=== PATIENT | female | born 2000 | race Caucasian/White ===

== ENCOUNTER 2021-07-14 11:53 | Emergency (ER) | payer BC, SELFPAY ==
[2021-07-14 12:03] VITALS: BP 121/78; PULSE 89; RESP 20; TEMP 36.3; O2SAT 100
--- NOTE | 2021-07-14 12:07 | ED.NAVMDI ---
HPI - Nausea/Vomiting/Diarrhea General Chief complaint: Nausea/Vomiting/Diarrhea Stated complaint: SEEING BLACK SPOTS/HEADACHE/NAUSEA Time Seen by Provider: 07/14/21 12:07 Source: patient and RN notes reviewed Mode of arrival: ambulatory Limitations: no limitations History of Present Illness HPI Narrative: 21-year-old female presents to the [facility] with headache, nausea and vomiting along with seeing black spots. Patient states that she woke up this morning and went and took a test at school. When she walked out started getting a headache and seeing black spots. Tried eating something because she felt faint. Started vomiting. States she has a history of migraines but this is worse than her normal migraine Last menstrual period 10 to 14 days ago Related Data Home Medications Medication Instructions Recorded Confirmed escitalopram oxalate mg 07/14/21 Allergies Allergy/AdvReac Type Severity Reaction Status Date / Time amoxicillin Allergy Unknown Verified 07/14/21 12:06 Review of Systems Review of Systems: All systems reviewed & are unremarkable except as noted in HPI and below Constitutional: Constitutional: Reports no additional constitutional complaints, Denies chills and Denies fever(s) Eyes: Eyes: Reports no additional eye complaints ENT: Reports system reviewed and no additional complaints, except as documented Cardiovascular: Cardiovascular: Reports no additional cardiovascular complaints and Denies chest pain Respiratory: Respiratory: Reports no additional respiratory complaints, Denies cough and Denies dyspnea Gastrointestinal: Gastrointestinal: Reports as per HPI, Reports abdominal pain, Reports nausea and Reports vomiting Genitourinary: Genitourinary: Reports no additional female genitourinary complaints Musculoskeletal: Musculoskeletal: Reports no additional musculoskeletal complaints, Denies back pain, Denies myalgias and Denies muscle cramps Integumentary/Breasts: Skin/Breast: Reports system reviewed and no additional complaints, except as docu, Denies erythema and Denies rash Neurologic: Reports as per HPI, Denies Abnormal speech present, Denies abnormal gait, Denies syncope, Reports headache(s), Denies focal weakness, Denies numbness, Reports Other visual disturbances (black spots) and Denies paresthesias Psychiatric: Psychiatric: Reports no additional psychiatric complaints Allergic/Immunologic: Allergic/Immunologic: Reports no additional allergic/immunologic complaints PMFSH Past Medical History Medical History (Updated 07/14/21 @ 13:06 by Sun Sands) Migraine Surgical History Surgical History (Updated 07/14/21 @ 13:06 by Sun Sands) No significant past surgical history Social History Social History (Updated 07/14/21 @ 13:07 by Sun Sands) Living arrangements: with roommate(s) Occupation/Education: student Gender identity (if verbalized by the patient): Female Comments At the time of my signature, I reviewed and agree with the nursing past medical, surgical, social, and family history. There is no relevant family history pertinent to the patient complaint. Exam Const: General: healthy appearing, no acute distress and alert Nutritional Appearance: well nourished Orientation/consciousness: patient oriented x3 Limitations: no limitations HENMT: Head: normal to inspection Ears: external ears normal, TM's normal bilaterally and EAC's normal Eyes: Alignment and Position: alignment normal Eyelids: eyelids normal Conjunctivae: conjunctivae normal Cornea: corneas normal Pupils: Equal, round and reactive pupils present EOM: EOMs intact bilaterally Direct Ophthalmoscopy: no photophobia and No photophobia Neck: Neck: normal visual inspection, no lymphadenopathy and no meningeal signs Resp: Effort & Inspection: normal respiratory effort and no use of accessory muscles Auscultation: clear to auscultation bilaterally, no crackles, no rales, no rhonchi and no
== END 2021-07-14 12:28 | disposition short-term general hospital (02) ==
PROVIDERS: Emergency Provider Nurse Practitioner
DX: R51.9 Headache, unspecified (principal); R55 Syncope and collapse; R11.2 Nausea with vomiting, unspecified; F32.9 Major depressive disorder, single episode, unspecified
CPT/HCPCS: 99212; G0463

== ENCOUNTER 2021-07-14 12:40 | Emergency (ER) | payer BC, SELFPAY ==
--- NOTE | ~2021-07-14 | CT_ITS ---
EXAMINATION: CT BRAIN W/O DATE: 07/14/2021 17:16 INDICATION: Headache. Frontal pain. TECHNIQUE: Computed tomography (CT) of the head was performed without intravenous contrast. The dose- length product was 605.33 mGy-cm. Automated exposure control and iterative reconstruction technique w ere employed. COMPARISON: No prior studies for comparison. FINDINGS: Normal brain parenchymal volume for age. Normal barbour-white differentiation. No acute intrac ranial hemorrhage, infarction, mass or mass effect. No ventriculomegaly or midline shift. Midline sagittal images demonstrate a normal corpus callosum, c raniovertebral junction and sella turcica. Basilar cisterns are patent. There is moderate right maxillary sinus disease. IMPRESSION: 1. Right maxillary sinusitis. Reviewed, dictated and finalized at location A.
[2021-07-14 13:03] VITALS: BP 126/83; PULSE 58; RESP 14; TEMP 36.6; O2SAT 100
[2021-07-14 16:24] VITALS: BP 142/95; PULSE 90; RESP 16; O2SAT 100
--- NOTE | 2021-07-14 16:31 | ED.GENADULT ---
HPI - General Adult General Chief complaint: Headache Stated complaint: H/A, VIS. PROBS, SENT FROM Time Seen by Provider: 07/14/21 16:17 Source: patient Mode of arrival: ambulatory Limitations: no limitations History of Present Illness HPI narrative: Patient presents for evaluation of headache. She states symptom onset was around 0930 this morning while she was walking to get coffee after an exam at school. She states pain started slowly but quickly progressed. Pain was in the frontal region with radiation into the bilateral parietal regions. States pain reached a level of 8.5/10 but is currently 6/10. Pain is an aching sensation and she reports seeing black spots . She is experienced associated dizziness, lightheadedness, nausea. She has a history of migraines but current symptoms are not consistent with normal migraine pattern. Again associated with migraines is usually sharp but in the same region as pain is currently experienced. She has had similar visual disturbance in the past. Last eye exam was a month ago. She typically takes Tylenol for headaches. She is not on prophylactic therapy or any additional abortive therapies. Reports high stress levels associated with school. Compliant with [facility]. Related Data Home Medications Medication Instructions Recorded Confirmed escitalopram oxalate mg 07/14/21 Allergies Allergy/AdvReac Type Severity Reaction Status Date / Time amoxicillin Allergy Unknown Verified 07/14/21 12:06 Review of Systems Review of Systems: CONSTITUTIONAL: Denies fever, chills, or sweats. EYES: Reports seeing black spots. Denies redness, or discharge. ENT: Denies rhinorrhea, congestion, sore throat, or otalgia. CARDIOVASCULAR: Denies chest pain, palpitations, or edema. RESPIRATORY: Denies cough or dyspnea. GASTROINTESTINAL: Denies abdominal pain, nausea, vomiting, or diarrhea. GENITOURINARY: Denies dysuria or hematuria. SKIN: Denies rash or itching. MUSCULOSKELETAL: Denies back pain, joint pain, or myalgia. NEUROLOGIC: Reports headache, dizziness and lightheadedness. Denies numbness or weakness. PSYCHIATRIC: Reports anxiety. Denies depression. [facility] Past Medical History Medical History IBS (irritable bowel syndrome) Migraine Surgical History Surgical History No significant past surgical history Family History Family History Mother Hypertension Father Hypertension Social History Social History (Updated 07/14/21 @ 16:33 by YELENA Herrera, ) Smoking status: Never smoker Substance use: never Living arrangements: with roommate(s) Occupation/Education: student Gender identity (if verbalized by the patient): Female Sexual Orientation (if Verbalized by the Patient): Straight or Heterosexual Spiritual care concerns: No Exam Narrative: GENERAL: Well-appearing, well-nourished, and in no acute distress. HEAD: Normocephalic, atraumatic. EYES: PERRLA and EOMI. ENT: Nares clear, no rhinorrhea or epistaxis. Mucous membranes moist. Oropharynx without tonsillar hypertrophy exudate or other lesions. Bilateral TMs pearly barbour nonbulging NECK: Supple. No adenopathy or masses. No carotid bruits or JVD CHEST: Clear to auscultation. No respiratory distress. No wheezes rales or rhonchi HEART: Regular rate and rhythm. No murmur heard. Normal peripheral pulses. ABDOMEN: Soft, nontender, nondistended, normal active bowel sounds. EXTREMITIES: Normal range of motion. No edema. SKIN: Warm, dry, no rash. NEURO: No focal deficits. Alert and oriented x3. Normal finger-nose exam. Able to perform rapid alternating movements without difficulty. Comprehensive neuro exam intact PSYCH: Normal mood and affect. Course Course Emergency Course: This is a 21-year-old female who presented with hea
[2021-07-14 16:51] LABS: Basophils Percent Auto 0.4 % (0.2-1.2); Eosinophils Percent Auto 0.3 % (0-4.4); Hematocrit 45.9 % (37.0-47.0); Hemoglobin 14.9 g/dL (12.0-15.0); Immature Granulocyte Absolute 0.02 K/mm3 (0.00-0.031); Immature Granulocyte Percent A 0.3 % (0-0.5); Lymphocytes Percent Auto 25.1 % (18.3-44.2); Mean Corpuscular HGB Conc 32.5 g/dl (32-36); Mean Corpuscular Hemoglobin 29.8 pg (26-34); Mean Corpuscular Volume 91.8 fl (80-100); Mean Platelet Volume 10.4 fl (7.4-10.4); Monocytes Absolute Auto 0.3 K/mm3 (0.1-0.6); Monocytes Percent Auto 3.8 % (2.6-8.5); Neutrophils Percent Auto 70.1 % (45.5-73.1); Platelet Count Result 283 k/mm3 (150-375); Red Cell Distribution Width 12.6 % (11.5-14.5); White Blood Count 7.2 K/mm3 (4.5-10.0)
[2021-07-14 16:57] LABS: Add Urine Microscopic? YES; Appearance Urine Clear (Clear); Bilirubin Urine Negative (Negative); Blood Urine Negative (Negative); Color Urine Yellow (Yellow); Glucose Urine UA Negative (Negative); Ketones Urine 1+ mg/dL (Negative); Leukocyte Esterase Ur Negative LEU/UL (Negative); Mucus Urine Rare /lpf; Nitrate Urine Negative (Negative); Protein Urine Negative (Negative); Specific Grav Ur 1.023 (1.001-1.035); Squamous Epithelial Cell Urine Moderate /hpf (Few); Urobilinogen Urine Negative mg/dL (<2.0); WBC Urine 0-3 /hpf
[2021-07-14 17:01] LABS: Alanine Aminotransferase 24 U/L (4-35); Alkaline Phosphatase 79 U/L (38-126); Anion Gap 13 mmol/L (8-16); Aspartate Amino Transferase 32 U/L (14-36); Bilirubin,Total 0.5 mg/dL (0.2-1.3); Blood Urea Nitrogen 8 mg/dL (7-17); Calcium 10.1 mg/dL (8.4-10.2); Carbon Dioxide 23 mmol/L (22-30); Chloride 103 mmol/L (98-107); Estimated CRCL calculation 87 ml/min; Estimated Glomerular Filt Rate > 60; Glucose 96 mg/dL (65-110); Sodium 139 mmol/L (137-145)
[2021-07-14] MEDS: METOCLOPRAMIDE HCL 10 MG TABLET PO (17:50)
[2021-07-14] MEDS: diphenhydrAMINE HCl CAP 25 MG CAPSULE PO (17:50)
[2021-07-14 19:40] VITALS: BP 112/59; PULSE 67; RESP 15; O2SAT 100
== END 2021-07-14 19:41 | disposition home or self-care (01) ==
PROVIDERS: Emergency Provider Nurse Practitioner
DX: R51.9 Headache, unspecified (principal); J01.00 Acute maxillary sinusitis, unspecified
CPT/HCPCS: 36415; 70450; 80053; 81001; 81025; 85025; 99284; A9270